=== PATIENT | female | born 1985 ===

== ENCOUNTER 2016-09-23 09:57 | Inpatient (IN) | payer BC ==
[2016-09-23] VITALS (50 sets, daily range): BP systolic 103–164; BP diastolic 45–91; PULSE 63–113; TEMP 97.6–98.9
[~2016-09-23] VITALS: Ht 180.3 cm; Wt 137.3 kg
[2016-09-23 11:35] LABS: BASO % 0.3 % (0.0-2.0); EOS % 0.4 % (0-4.0); GRAN # 7.3 (1.4-6.5); GRAN % 73.6 % (42.2-75.2); HEMOGLOBIN 12.4 g/dl (12.5-16.0); LYMPH # 2.1 (1.2-3.4); LYMPH % 21.3 % (20.0-51.0); MEAN CELL VOLUME 87 fl (80.0-100.0); MEAN CORPUSCULAR HEMOGLOBIN 29 pg (27.0-31.0); MEAN CORPUSCULAR HGB CONC 34 g/dl (33.0-37.0); MEAN PLATELET VOLUME 11.3 fl (7.4-10.4); MONO # 0.4 (0.1-0.6); MONO % 3.9 % (1.7-9.3); PLATELET COUNT 233 K/mm3 (130-400); RED BLOOD COUNT 4.25 M/mm3 (4.10-5.30); REDCELL DISTRIBUTION WIDTH-CV 13.4 % (11.5-14.5); WHITE BLOOD COUNT 9.9 K/mm3 (4.8-10.8)
[2016-09-23 11:40] LABS: HEMATOCRIT 36.8 % (37.0-47.0)
[2016-09-24] VITALS (13 sets, daily range): BP systolic 98–135; BP diastolic 45–79; PULSE 78–104; TEMP 98.1–98.6
[2016-09-24 08:59] LABS: BASO % 0.3 % (0.0-2.0); EOS % 0.1 % (0-4.0); GRAN # 10.6 (1.4-6.5); GRAN % 75.9 % (42.2-75.2); LYMPH # 2.6 (1.2-3.4); LYMPH % 18.3 % (20.0-51.0); MEAN CELL VOLUME 87 fl (80.0-100.0); MEAN CORPUSCULAR HGB CONC 34 g/dl (33.0-37.0); MEAN PLATELET VOLUME 11.5 fl (7.4-10.4); MONO # 0.7 (0.1-0.6); MONO % 4.8 % (1.7-9.3); PLATELET COUNT 194 K/mm3 (130-400); RED BLOOD COUNT 3.56 M/mm3 (4.10-5.30); REDCELL DISTRIBUTION WIDTH-CV 13.2 % (11.5-14.5); WHITE BLOOD COUNT 13.9 K/mm3 (4.8-10.8)
[2016-09-24 09:15] LABS: HEMOGLOBIN 10.6 g/dl (12.5-16.0); MEAN CORPUSCULAR HEMOGLOBIN 30 pg (27.0-31.0)
[2016-09-25 06:45] VITALS: BP 123/70; PULSE 89; TEMP 98.2
[2016-09-25] MEDS ORDERED: PERCOCET 325 MG1 TA2 PO (08:47)
[2016-09-25] MEDS ORDERED: MOTRIN 800800 MG/TAB PO (08:47)
[2016-09-25 16:38] VITALS: BP 126/61; PULSE 77; TEMP 98.4
[2016-09-25 20:00] VITALS: BP 138/66; PULSE 76; TEMP 97.7
[2016-09-26 07:51] VITALS: BP 139/81; PULSE 89; TEMP 97.5
[2016-09-26 15:55] VITALS: BP 136/74; PULSE 84; TEMP 98.1
== END 2016-09-26 17:20 | disposition home or self-care (01) | DRG 766 ==
LOC: LDRO 09:57 → OB 10:28 → LDR 10:28 → OB 09-24 01:02
PROVIDERS: Obstetrics & Gynecology
PROC: 10D00Z1 Extraction of Products of Conception, Low, Open Approach (ICD-10-PCS; principal; 2016-09-23)
DX: O42.02 Full-term premature rupture of membranes, onset of labor within 24 hours of rupture (principal); O48.0 Post-term pregnancy; O33.5XX0 Maternal care for disproportion due to unusually large fetus, not applicable or unspecified; O36.63X0 Maternal care for excessive fetal growth, third trimester, not applicable or unspecified; O75.89 Other specified complications of labor and delivery; Z3A.41 41 weeks gestation of pregnancy; Z37.0 Single live birth
CPT/HCPCS: J0690; J1885; J2175; J2210; J2270; J2370; J2400; J2405; J2590; J2795; J7120